=== PATIENT | female | born 1960 | race Two or more races ===

== ENCOUNTER 2017-04-30 10:49 | Emergency (ER) | payer OTHER ==
[~2017-04-30] VITALS: Ht 160 cm; Wt 83.5 kg
[~2017-04-30 10:49] MED LIST: BENZ100C PO; CELE400C PO; CINN500C2 PO; DOCO1CAP2 PO; FERR325T20 PO; GINK60TA PO; HYDR-2758 PO; HYDR25TA9 PO; MULT-18 PO
[2017-04-30] MEDS ORDERED: MORPHINE SULFATE 4 MG/ML DISP.SYRIN. IV ONE (11:15)
[2017-04-30 11:31] LABS: BASO # 0.1 x10^3/uL (0.0-0.2); BASO % 1 % (0-3); EOS % 1 % (0-3); HEMATOCRIT 41.7 % (36.0-47.0); HEMOGLOBIN 13.4 g/dL (12.0-15.5); LYMPH # 4.5 x10^3/uL (1.0-4.8); LYMPH % 28 % (24-48); MEAN CORPUSCULAR HEMOGLOBIN 26 pg (25-35); MEAN CORPUSCULAR HGB CONC 32 g/dL (31-37); MEAN CORPUSCULAR VOLUME 80 fL (79-100); MONO % 5 % (0-9); NEUT % 65 % (31-73); PLATELET COUNT 391 x10^3/uL (140-400); RED BLOOD COUNT 5.19 x10^6/uL (3.50-5.40); RED CELL DISTRIBUTION WIDTH 14.6 % (11.5-14.5); WHITE BLOOD COUNT 16.1 x10^3/uL (4.0-11.0)
[2017-04-30 11:43] LABS: CALCIUM 9.7 mg/dL (8.5-10.1); CREATININE 0.7 mg/dL (0.6-1.0); GFR 86.6; POTASSIUM 3.7 mmol/L (3.5-5.1)
--- NOTE | 2017-04-30 11:45 | EKG ---
[facility] [address] [place] [address] Test Date: 2017-04-30 Test Time: 11:30:24 Pat Name: VANDANA NOWAK Department: Room: Gender: F Healthcare Marketer: : 1960 Requested By: CRISTIN ANDERSON Order Number: [id number] Reading MD: Nas Doyle MD Measurements Intervals [place] Rate: 55 P: 45 [place]: 144 QRS: 32 QRSD: 96 T: 24 QT: 428 QTc: 412 Interpretive Statements SINUS RHYTHM Electronically Signed On 05-01-2017 16:40:30 RESEARCH & ANALYTICS MANAGER by Nas Doyle MD
[2017-04-30 11:48] LABS: PROTHROMBIN TIME PATIENT 12.6 SEC (11.7-14.0)
[2017-04-30 11:49] LABS: ALBUMIN 3.4 g/dL (3.4-5.0); ALBUMIN/GLOBULIN RATIO 0.8 (1.0-1.7); TOTAL BILIRUBIN 0.6 mg/dL (0.2-1.0); TOTAL PROTEIN 7.5 g/dL (6.4-8.2)
[2017-04-30 11:56] LABS: CKMB MASS 2.1 ng/mL (0.0-3.6)
[2017-04-30] MEDS ORDERED: IOHEXOL 300 MG/ML 100ML VIAL. IV ONE (12:00)
[2017-04-30] MEDS ORDERED: CONTRAST GIVEN MC PRN (12:00)
--- NOTE | 2017-04-30 12:31 | PHYS DOC ---
Past Medical History Past Medical History: DVT, Hypertension Past Surgical History: , Knee Replacement, Tubal ligation Alcohol Use: Occasionally Drug Use: None Adult General Chief Complaint Chief Complaint: BACK PAIN OR [facility]URY [facility] HPI Patient is a 57 year old female presents the ED complaining of chest pain x 1 day. States she has pain to her right side of her ribs and back with inspiration. States she just flew 20+ hours on a trip from [place]. Pain with inspiration started two days after returning. History of DVT and smoking. Currently not taking any blood thinners. States she has also had a cough and cold symptoms over the last 2-3 weeks. States pain is worse with movement. Denies dysuria, hematuria, abdominal pain, calf pain, weakness, dizziness, fever , headache or syncope. Review of Systems Review of Systems Constitutional: Denies fever or chills [] Eyes: Denies change in visual acuity, redness, or eye pain [] HENT: Complains of rhinorrhea. Denies sore throat [] Respiratory: Complains of cough. Denies shortness of breath [] Cardiovascular: No additional information not addressed in HPI [] GI: Denies abdominal pain, nausea, vomiting, bloody stools or diarrhea [] : Denies dysuria or hematuria [] Musculoskeletal: Denies back pain or joint pain [] Integument: Denies rash or skin lesions [] Neurologic: Denies headache, focal weakness or sensory changes [] Endocrine: Denies polyuria or polydipsia [] All other systems were reviewed and found to be within normal limits, except as documented in this note. Current Medications Current Medications Current Medications Medications (Trade) Dose Ordered Sig/[facility] Start Time Stop Time Status Last Admin Dose Admin Acetaminophen/ Hydrocodone Bitart (Lortab 5/325) 1 tab 1X ONCE 04/30/17 13:00 04/30/17 13:01 DC 04/30/17 13:07 1 TAB Info (Do NOT chart on this entry -- for MONITORING) 1 each PRN DAILY PRN 04/30/17 12:00 04/30/17 13:51 DC Iohexol (Omnipaque 300 Mg/ml) 75 ml 1X ONCE 04/30/17 12:00 04/30/17 12:01 DC 04/30/17 12:12 75 ML Ketorolac Tromethamine (Toradol) 30 mg 1X ONCE 04/30/17 13:00 04/30/17 13:01 DC 04/30/17 13:07 30 MG Morphine Sulfate 4 mg 1X ONCE 04/30/17 11:15 04/30/17 11:16 DC 04/30/17 11:24 4 MG Allergies Allergies Allergies Coded Allergies Type Severity Reaction Last Updated Verified No Known Drug Allergies 12/28/13 No Physical Exam Physical Exam Constitutional: Well developed, well nourished, no acute distress, non-toxic appearance. [] HENT: Normocephalic, atraumatic, bilateral external ears normal, oropharynx moist, no oral exudates, nose normal. [] Eyes: PERRLA, EOMI, conjunctiva normal, no discharge. [] Neck: Normal range of motion, no tenderness, supple, no stridor. [] Cardiovascular:Heart rate regular rhythm, no murmur [] Lungs & Thorax: Bilateral breath sounds clear to auscultation. Dry Cough.[] Abdomen: Bowel sounds normal, soft, no tenderness, no masses, no pulsatile masses. [] Skin: Warm, dry, no erythema, no rash. [] Back: Reproducible chest wall tenderness to right lateral upper back. Worst with lateral ROM. No overlying skin changes. no midline tenderness. no CVA tenderness. [] Extremities: No tenderness, no cyanosis, no clubbing, ROM intact, no edema. [] Neurologic: Alert and oriented X 3, normal motor function, normal sensory function, no focal deficits noted. [] Psychologic: Affect normal, judgement normal, mood normal. [] Current Patient Data Vital Signs Vital Signs Date Time Temp Pulse Resp B/P (MAP) Pulse Ox O2 Delivery O2 Flow Rate FiO2 04/30/17 13:27 58 20 134/72 (92) 98 Room Air 04/30/17 11:04 97.5 97.5 Lab Values Laboratory Tests Test 04/30/17 11:25 White Blood Count 16.1 x10^3/uL (4.0-11.0) H Red Blood Count 5.19 x10^6/uL (3.50-5.40) Hemoglobin 13.4 g/dL (12.0-15.5) Hematocrit 41.7 % (36.0-47.0) Mean Corpuscular Volume 80 fL (79-100) Mean Corpuscular Hemoglobin 26 pg (25-35) Mean Corpuscular Hemoglobin Concent 32 g/dL (31-37) Red Cell Distribution Width 14.6 % (11.5-14.5) H Platelet Count 391 x10^3/uL (140-400) Neutrophils (%) (Auto) 65 % (31-73) Lymphocytes (%) (Auto) 28 % (24-48) Monocytes (%) (Auto) 5 % (0-9) Eosinophils (%) (Auto) 1 % (0-3) Basophils (%) (Auto) 1 % (0-3) Neutrophils # (Auto) 10.4 x10^3uL (1.8-7.7) H Lymphocytes # (Auto) 4.5 x10^3/uL (1.0-4.8) Monocytes # (Auto) 0.8 x10^3/uL (0.0-1.1) Eosinophils # (Auto) 0.2 x10^3/uL (0.0-0.7) Basophils # (Auto) 0.1 x10^3/uL (0.0-0.2) Prothrombin Time 12.6 SEC (11.7-14.0) Prothrombin Time INR 1.0 (0.8-1.1) Sodium Level 139 mmol/L (136-145) Potassium Level 3.7 mmol/L (3.5-5.1) Chloride Level 102 mmol/L (98-107) Carbon Dioxide Level 33 mmol/L (21-32) H Anion Gap 4 (6-14) L Blood Urea Nitrogen 14 mg/dL (7-20) Creatinine 0.7 mg/dL (0.6-1.0) Estimated GFR (Cockcroft-Gault) 86.6 BUN/Creatinine Ratio 20 (6-20) Glucose Level 110 mg/dL (70-99) H Calcium Level 9.7 mg/dL (8.5-10.1) Total Bilirubin 0.6 mg/dL (0.2-1.0) Aspartate Amino Transferase (AST) 18 U/L (15-37) Alanine Aminotransferase (ALT) 28 U/L (14-59) Alkaline Phosphatase 87 U/L (46-116) Creatine Kinase 126 U/L (26-192) Creatine Kinase MB (Mass) 2.1 ng/mL (0.0-3.6) Creatine Kinase MB Relative Index 1.7 % (0-4) Troponin I Quantitative < 0.017 ng/mL (0.000-0.055) Total Protein 7.5 g/dL (6.4-8.2) Albumin 3.4 g/dL (3.4-5.0) Albumin/Globulin Ratio 0.8 (1.0-1.7) L Lipase 144 U/L (73-393) Laboratory Tests 04/30/17 11:25 Laboratory Tests 04/30/17 11:25 EKG EKG [] Radiology/Procedures Radiology/Procedures [] Course & Med Decision Making Course & Med Decision Making Pertinent Labs and Imaging studies reviewed. (See chart for details) []Discussed lab and imaging findings with patient. Patient improved. Vital stable, no acute distress. States she is feeling much better. Chose to not complete UA test because she wanted to go home. Cough and cold symptoms for greater than 2 weeks. Will treat for possible atypical type pneumonia with patient's symptoms. Patient's pain is also reproducible with movement and palpation. Negative CTA of the chest. Discussed case with attending physician. Discussed follow-up with PCP in one to 2 days. Discussed reasons to return to the ED. Patient understands and agrees with plan. Dragon Disclaimer Dragon Disclaimer This electronic medical record was generated, in whole or in part, using a voice recognition dictation system. Departure Departure Impression: Primary Impression: Cough Additional Impression: Back pain Disposition: 01 HOME, SELF-CARE Condition: IMPROVED Referrals: CHELA PRICE (PCP) Patient Instructions: Muscle Strain, Pneumonia, Adult Scripts Hydrocodone/Apap 5-325 (NORCO 5-325 TABLET) 1 Each Tablet 1 TAB PO TID, #10 TAB Prov: CRISTIN ANDERSON 04/30/17 Benzonatate (TESSALON PERLE) 100 Mg Capsule 1 CAP PO TID, #21 CAP Prov: CRISTIN ANDERSON 04/30/17 Guaifenesin (MUCINEX) 600 Mg Tablet.er 1 TAB PO BID, #20 TAB Prov: CRISTIN ANDERSON 04/30/17 Azithromycin (AZITHROMYCIN TABLET) 250 Mg Tablet 1 PKG PO UD, #6 TAB Prov: CRISTIN ANDERSON 04/30/17 Problem Qualifiers CRISTIN ANDERSON Apr 30, 2017 12:31
--- NOTE | 2017-04-30 12:32 | RAD ---
Indication: Chest pain. Axial imaging through the chest was performed after the administration of intravenous contrast and utilizing the CT angiography protocol. Multiplanar, 3-D and MIP reformations were also performed. No prior studies are available for comparison. Evaluation of the pulmonary arterial system is without evidence of thromboembolism. No filling defects are detected within the lobar, central and segmental branches. No pericardial or pleural fluid is identified. No pulmonary infiltrates, nodules or masses are seen. Impression: No evidence of pulmonary embolism. PQRS Compliance Statement: One or more of the following individualized dose reduction techniques were utilized for this examination: 1. Automated exposure control 2. Adjustment of the mA and/or kV according to patient size 3. Use of iterative reconstruction technique
[2017-04-30] MEDS ORDERED: KETOROLAC 30 MG/ML INJ. IV ONE (13:00)
[2017-04-30] MEDS ORDERED: HYDROcodone/APAP 5/325MG 1 TAB TABLET PO ONE (13:00)
--- NOTE | 2017-04-30 13:22 | RAD ---
Indication: Right-sided chest pain and shortness of air. Time of exam 1305 hours. Correlation is made with prior study from 12/28/2013. FINDINGS: The heart size is normal. The lungs are clear. No pleural effusion or pneumothorax is identified. The pulmonary vascularity is normal. IMPRESSION: No acute abnormality detected.
[2017-04-30 13:27] VITALS: BP 134/72
[2017-04-30] MEDS ORDERED: AZIT250T6 PO (13:38)
[2017-04-30] MEDS ORDERED: BENZ100C PO (13:38)
[2017-04-30] MEDS ORDERED: GUAI600T47 PO (13:38)
[2017-04-30] MEDS ORDERED: HYDR-971 PO (13:38)
== END 2017-04-30 13:51 | disposition home or self-care (01) ==
LOC: ER 10:49
DX: R05 Cough (principal); R07.1 Chest pain on breathing; M54.6 Pain in thoracic spine; I10 Essential (primary) hypertension; Z86.718 Personal history of other venous thrombosis and embolism
CPT/HCPCS: 36415; 71010; 71275; 80053; 82553; 83690; 84484; 85025; 85610; 93005; 96374; 96375; 99285; J1885; J2270; Q9967

== ENCOUNTER → 2020-06-07 | Outpatient (CLI) | payer OTHER ==
[~2020-06-07] MED LIST changes: +AZIT250T6 PO; +CRESTOR5 MG PO; +GUAI600T47 PO; +HYDR-2145 PO; -HYDR-2758 PO; +HYDR-2761 PO; +HYDR-3164 PO; -HYDR25TA9 PO
== END ==
LOC: LAB 08:00
PROVIDERS: ATTEND Internal Medicine Gastroenterology
DX: Z01.812 Encounter for preprocedural laboratory examination (principal); Z12.11 Encounter for screening for malignant neoplasm of colon; Z20.828 Contact with and (suspected) exposure to other viral communicable diseases
CPT/HCPCS: U0003

== ENCOUNTER → 2020-06-09 | Day surgery (SDC) | payer OTHER ==
[~2020-06-09] MED LIST changes: +GLYCOPYRROLATE 1 MG/5 ML VIAL. ONE; +IV RINGERS,LACTATED 1000ML 1,000 ML IV ONE; +LIDOCAINE 2% PF 5 ML VIAL. ONE; +PROPOFOL 10 MG/ML (20ML) VIAL. IV ONE
[2020-06-09 09:10] VITALS: BP 147/79
--- NOTE | 2020-06-09 11:11 | HP ---
ADMIT DATE: 06/09/2020 UPDATED HISTORY AND PHYSICAL REFERRING PHYSICIAN: Dr. Hira Rankin. REASON FOR CONSULTATION: Colorectal screening. HISTORY OF PRESENT ILLNESS: A 60-year-old female with a past medical history that is significant for hypertension, hyperlipidemia, seen for screening colonoscopy. Bowel habits are regular without diarrhea or constipation. There has been no melena and/or hematochezia. Family history is unrevealing for colon cancer. Last colonoscopy in 2009 was unrevealing. PAST SURGICAL HISTORY: , knee replacement. PAST MEDICAL HISTORY: Hypertension, hyperlipidemia ALLERGIES: No known drug allergies. MEDICATIONS: Include hydrochlorothiazide, multivitamin, and Crestor. SOCIAL HISTORY: She is a nondrinker, smoker. FAMILY HISTORY: Noncontributory. REVIEW OF SYSTEMS: Per records. PHYSICAL EXAMINATION: GENERAL: Reveals a well-nourished, well-developed female who is alert, cooperative, in no acute distress. VITAL SIGNS: Temperature 98.6, pulse 76, respiratory rate 20 and pulse ox 98%. LUNGS: Clear. CARDIOVASCULAR: Reveals an S1, S2 without S3, S4 or appreciable murmur. ABDOMEN: With a soft abdomen, normal bowel sounds, without appreciable hepatosplenomegaly. EXTREMITIES: Have no cyanosis, clubbing or edema. IMPRESSION: Colorectal screening is warranted at this time. Risks and benefits of procedure including risk of hemorrhage and perforation have been discussed. She is willing to proceed. PLAN: I would like to thank Dr. Rankin for allowing us to consult and participate in the patient's care. TAMEKA OSHEA MD DR: STACY/leighton JOB#: [id number] / [id number] CHELA Sprague
== END | disposition home or self-care (01) ==
LOC: ENDOS 07:10
PROVIDERS: ATTEND Internal Medicine Gastroenterology
DX: Z12.11 Encounter for screening for malignant neoplasm of colon (principal); K64.0 First degree hemorrhoids; K57.30 Diverticulosis of large intestine without perforation or abscess without bleeding; K63.89 Other specified diseases of intestine; I10 Essential (primary) hypertension; E78.5 Hyperlipidemia, unspecified; Z96.659 Presence of unspecified artificial knee joint; Z98.890 Other specified postprocedural states; Z79.899 Other long term (current) drug therapy
CPT/HCPCS: 45378; J2704; J3490